=== PATIENT | female | born 2000 | race Hispanic/Latino ===

== ENCOUNTER → 2023-10-22 | Day surgery (SDC) | payer OTHER ==
[2023-10-14 15:59] LABS: BASOPHILS % 0.4 % (0.0-1.0); EOSINOPHILS # (AUTO) 0.1 (0.0-0.4); EOSINOPHILS % 0.7 % (0.0-6.0); HEMATOCRIT 41.8 % (34.2-44.1); HEMOGLOBIN 14.7 g/dL (12.0-16.0); LYMPHOCYTES # (AUTO) 2.5 (1.0-3.2); LYMPHOCYTES % 36.7 % (18.0-39.1); MEAN CORPUSCULAR HGB CONC 35.2 g/dL (31-35); MEAN CORPUSCULAR VOLUME 91.1 fL (81-99); MONOCYTES # (AUTO) 0.4 (0.2-0.8); MONOCYTES % 6.6 % (4.4-11.3); NEUTROPHILS # (AUTO) 3.7 (2.1-6.9); NEUTROPHILS % 55.5 % (38.7-80.0); PLATELET COUNT 159 x10e3/uL (140-360); RED BLOOD COUNT 4.59 x10e6/uL (3.6-5.1); WHITE BLOOD COUNT 6.71 x10e3/uL (4.8-10.8)
[2023-10-14 16:31] LABS: ANION GAP 16.7 mmol/L (8-16); CALCIUM 9.9 mg/dL (8.4-10.2); CREATININE, SERUM 0.76 mg/dL (0.57-1.11); POTASSIUM 3.7 mmol/L (3.5-5.1)
[~2023-10-22] MED LIST: BUPIVACAINE HCL 0.5% INJ 30 ML VIAL INJ ONE; DEXAMETHASONE SOD PHOS INJ 4 MG/ML SDV ONE; DEXMEDETOMIDINE HCL 2 ML ONE; FENTANYL CITRATE/PF 100MCG/2 ML INJ ONE; LIDOCAINE HCL 2% LOCAL INJ 5 ML SDV VIAL INJ ONE; MIDAZOLAM HCL 2 MG/2 ML VIAL ONE; NEOSTIGMINE 1 MG/ML 10ML VIAL ONE; ONDANSETRON HCL INJ 2MG/ML 2ML 2 MG/ML VIAL ONE; PROPOFOL IV EMULSION 10 MG/ML 20 ML VIAL ONE; PROPOFOL IV EMULSION 100 ML IV ONE; SODIUM CHLORIDE 0.9% 100 ML ONE
[2023-10-22] MEDS: CEFAZOLIN SODIUM 2 GM ONE (05:55)
[2023-10-22] MEDS: LACTATED RINGER'S 1,000 ML ONE (05:55)
[2023-10-22 10:10] VITALS: BP 103/57; PULSE 74; RESP 17; O2SAT 99
== END | disposition home or self-care (01) ==
LOC: OR 05:12
PROVIDERS: ATTEND Podiatrist Foot Surgery
DX: M20.11 Hallux valgus (acquired), right foot (principal); M21.621 Bunionette of right foot; Z01.812 Encounter for preprocedural laboratory examination
CPT/HCPCS: 28110; 28296; 36415; 80048; 81025; 85025; C1713 ×4; J1100; J2001; J2250; J2405; J2704 ×2; J2710; J3010; J7050; J7121; 76000